=== PATIENT | female | born 1950 | race Caucasian/White ===

== ENCOUNTER 2020-11-05 07:17 | Day surgery (SDC) | payer OTHER ==
[~2020-11-05] VITALS: Ht 172.7 cm; Wt 133.8 kg
--- NOTE | ~2020-11-05 | O ---
[facility] [place] [address] OPERATIVE REPORT Name: JONI HORN Room #: 150-2 [facility] M.R.#: [id number] Admission: 11/05/20 Attend Phys: Vinay Victoria, Discharge: Date of : 46 Report #: [id number] THIS REPORT FOR: cc: Matthieu Hernandez MD,Matthieu Victoria,Vinay Bennett MD ~ DATE OF SERVICE: 11/05/2020 PREOPERATIVE DIAGNOSIS: Incarcerated ventral hernia. POSTOPERATIVE DIAGNOSIS: Incarcerated ventral hernia. OPERATION: Laparoscopic repair of incarcerated ventral hernia with mesh. SURGEON: Vinay Victoria MD ANESTHESIA: General. ESTIMATED BLOOD LOSS: Minimal. SPECIMENS: None. DESCRIPTION OF PROCEDURE: After informed consent was obtained, the patient was brought to the operating room and placed supine. SCDs were placed and working, preoperative antibiotics were administered and general anesthesia was induced. The abdomen was prepped and draped in the usual sterile fashion. A 5 mm incision was made in the left upper quadrant. A 5 mm trocar was placed under direct vision. Pneumoperitoneum was established. Left-sided 11 mm trocar and a right-sided 5 mm trocar was placed under direct vision. She had incarcerated transverse colon in the 5 cm umbilical hernia defect. I was able to carefully reduce the colon without injury to the colon. The defect was 5 x 5 cm. I therefore inserted a 6 cm paimiut of Ventralight mesh. It was brought to the abdominal wall and was tacked with 40 absorbable tacks. I then placed two [place] sutures superiorly and inferiorly using a PMI suture passer into the mesh. The ports were then removed under direct vision. The skin was closed with 4-0 Monocryl. Incisions were dressed with Steri-Strips. COMPLICATIONS: None. DISPOSITION: The patient was taken to recovery in satisfactory condition. By: [id number] Vinay Victoria MD /nt
[~2020-11-05 07:17] MED LIST: EB-N5 PO; FIBER500 MG PO; LISINOPRIL-HCT1 EAC2 PO; STOOL SOFTENER1 EAC2 PO
[2020-11-05 07:54] LABS: HEMATOCRIT 36.2 % (37.0-47.0); HEMOGLOBIN 11.9 gm/dL (12.0-15.0); MCHC 32.9 g/dL (28.0-37.0); RBC 4.26 mil/uL (4.20-5.00); RDW 14.3 % (10.5-14.5); WBC 11.9 thou/uL (4.0-11.0)
[2020-11-05 08:00] VITALS: BP 160/78
[2020-11-05 08:12] LABS: CALCIUM 9.5 mg/dL (8.5-10.1); CREATININE 1.7 mg/dL (0.6-1.0); POTASSIUM 4.4 mmol/L (3.5-5.1)
[2020-11-05] MEDS ORDERED: NORCO5 PO (10:11)
[2020-11-05 11:29] VITALS: BP 160/78
[2020-11-05 11:31] VITALS: BP 160/78
--- NOTE | 2020-11-06 07:08 | EKG ---
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
== END 2020-11-05 12:38 | disposition home or self-care (01) ==
LOC: OR 07:17 → TBA 07:18 → OR 10:22
PROVIDERS: ATTEND Surgery
DX: K43.6 Other and unspecified ventral hernia with obstruction, without gangrene (principal); I10 Essential (primary) hypertension; Z98.890 Other specified postprocedural states; Z79.899 Other long term (current) drug therapy; Z20.822 Contact with and (suspected) exposure to COVID-19; Z85.3 Personal history of malignant neoplasm of breast
CPT/HCPCS: 50010; 50101; 50386; 50555; 50687; 50848; 50978; 51489; 52265; 52266; 53307; 54022; 56525; 56526; 56530; 57092; 58574; 58910; 62110; 62900; 65130; 70005